=== PATIENT | male | born 1990 ===

== ENCOUNTER → 2023-05-26 | Day surgery (SDC) | payer OTHER ==
[~2023-05-26] MED LIST: OXYC1TAB9 PO
== END | disposition home or self-care (01) ==
LOC: ADM 05-20 11:45 → CIR.AMB 06:56
PROVIDERS: ATTEND Surgery
DX: K60.3 Anal fistula (principal); K60.1 Chronic anal fissure; I10 Essential (primary) hypertension; Z20.822 Contact with and (suspected) exposure to COVID-19